=== PATIENT | male | born 1975 ===

== ENCOUNTER 2018-07-02 13:41 | Inpatient (IN) | payer OTHER ==
[~2018-07-02] VITALS: Ht 170.2 cm; Wt 71.7 kg
== END 2018-07-09 15:37 | disposition home or self-care (01) | DRG 392 ==
LOC: ER 13:41 → SEC-K 19:48 → SURG 07-04 16:32 → SURH 07-08 17:14
PROC: BW25ZZZ Computerized Tomography (CT Scan) of Chest, Abdomen and Pelvis (ICD-10-PCS; principal; 2018-07-02)
PROC: BW21Y0Z Computerized Tomography (CT Scan) of Abdomen and Pelvis using Other Contrast, Unenhanced and Enhanced (ICD-10-PCS; 2018-07-02)
PROC: BW21Y0Z Computerized Tomography (CT Scan) of Abdomen and Pelvis using Other Contrast, Unenhanced and Enhanced (ICD-10-PCS; 2018-07-07)
DX: K57.20 Diverticulitis of large intestine with perforation and abscess without bleeding (principal); K80.80 Other cholelithiasis without obstruction

== ENCOUNTER 2018-09-02 12:05 | Day surgery (SDC) | payer OTHER | END 2018-09-02 18:00 | disposition home or self-care (01) | LOC: AMB-ENDOS 12:05 | DX: K57.20 Diverticulitis of large intestine with perforation and abscess without bleeding (principal) ==

== ENCOUNTER → 2018-09-17 12:38 | Outpatient (CLI) | payer OTHER | END | disposition home or self-care (01) | LOC: LAB 12:38 | DX: K57.20 Diverticulitis of large intestine with perforation and abscess without bleeding (principal); R10.32 Left lower quadrant pain; R19.4 Change in bowel habit ==

== ENCOUNTER 2018-10-06 08:30 | Inpatient (IN) | payer OTHER ==
[2018-10-12] MEDS ORDERED: PERCOCET 5-3251 EACH PO (13:36)
== END 2018-10-12 15:18 | disposition home or self-care (01) | DRG 331 ==
LOC: SURH 10-09 08:30 → O/R 10-09 09:05 → SURH 10-09 09:05
PROVIDERS: Surgery
PROC: 0DTP4ZZ Resection of Rectum, Percutaneous Endoscopic Approach (ICD-10-PCS; 2018-10-09)
PROC: 0DJD8ZZ Inspection of Lower Intestinal Tract, Via Natural or Artificial Opening Endoscopic (ICD-10-PCS; 2018-10-09)
PROC: 0DTN4ZZ Resection of Sigmoid Colon, Percutaneous Endoscopic Approach (ICD-10-PCS; principal; 2018-10-09 09:00)
DX: K57.20 Diverticulitis of large intestine with perforation and abscess without bleeding (principal); D64.89 Other specified anemias

== ENCOUNTER 2019-08-11 09:15 | Outpatient (CLI) | payer OTHER ==
[~2019-08-11 09:15] MED LIST: PERCOCET 5-3251 EACH PO
== END 2019-08-11 09:24 | disposition home or self-care (01) ==
LOC: TOM 09:15
DX: R10.2 Pelvic and perineal pain (principal)

== ENCOUNTER 2021-04-15 16:00 | Emergency (ER) | payer OTHER ==
[~2021-04-15] VITALS: Ht 170.2 cm; Wt 72.6 kg
[2021-04-15] MEDS ORDERED: LEVSIN0.125 MG PO (20:39)
[2021-04-15] MEDS ORDERED: PEPCID AC20 MG PO (20:39)
== END 2021-04-15 20:53 | disposition home or self-care (01) ==
LOC: ER 16:00
DX: K80.20 Calculus of gallbladder without cholecystitis without obstruction (principal); R10.84 Generalized abdominal pain

== ENCOUNTER 2021-07-16 12:42 | Emergency (ER) | payer OTHER ==
[~2021-07-16] VITALS: Ht 170.2 cm; Wt 71.7 kg
[~2021-07-16 12:42] MED LIST changes: +LEVSIN0.125 MG PO; +PEPCID AC20 MG PO
[2021-07-16] MEDS ORDERED: DICLOFENAC SODI75 MG PO (13:19)
== END 2021-07-16 14:22 | disposition home or self-care (01) ==
LOC: ER 12:42
DX: H00.016 Hordeolum externum left eye, unspecified eyelid (principal)